=== PATIENT | female | born 1980 | race Hispanic/Latino ===

== ENCOUNTER 2016-06-26 00:29 | Emergency (ER) | payer OTHER ==
[2016-06-26 01:25] LABS: BASO # 0.1 K/mm3 (0.0-0.2); BASO % 0.9 % (0.0-1.0); EOS # 0.1 K/mm3 (0.0-0.50); EOS % 1.5 % (0.0-3.0); LARGE UNSTAINED CELL # 0.2 K/mm3 (0.0-0.4); LARGE UNSTAINED CELL % 2.7 % (0.0-4.0); LYMPH # 2.6 K/mm3 (1.5-4.5); LYMPH % 33.4 % (24.0-44.0); MEAN CORPUSCULAR HEMOGLOBIN 29.1 pg (27.0-33.0); MEAN CORPUSCULAR HGB CONC 32.7 g/dl (32.0-36.5); MEAN CORPUSCULAR VOLUME 88.9 fl (80.0-96.0); MONO # 0.4 K/mm3 (0.0-0.8); MONO % 5.2 % (0.0-5.0); NEUTROPHILS # 4.5 K/mm3 (1.8-7.7); NEUTROPHILS % 56.3 % (36.0-66.0); PLATELET COUNT, AUTOMATED 249 k/mm3 (150-450); RED CELL DISTRIBUTION WIDTH 12.6 % (11.5-14.5); WHITE BLOOD COUNT 7.9 K/mm3 (4.0-10.0)
[2016-06-26 01:46] LABS: CONTROL LINE HCG INT CTR LINE PRESENT
[2016-06-26 01:54] LABS: ALBUMIN 3.6 GM/DL (3.2-5.2); ALBUMIN/GLOBULIN RATIO 0.82 (1.00-1.93); ALKALINE PHOSPHATASE 63 U/L (45-117); ALT/SGPT 39 U/L (12-78); AMYLASE 54 U/L (25-115); ANION GAP 7 MEQ/L (8-16); AST/SGOT 23 U/L (15-37); BILIRUBIN,DIRECT < 0.1 MG/DL (0.0-0.2); BILIRUBIN,TOTAL 0.3 MG/DL (0.2-1.0); BLOOD UREA NITROGEN 12 MG/DL (7-18); CALCIUM LEVEL 8.4 MG/DL (8.5-10.1); CARBON DIOXIDE LEVEL 27 MEQ/L (21-32); CHLORIDE LEVEL 105 MEQ/L (98-107); CREATININE FOR GFR 0.71 MG/DL (0.55-1.02); GLOMERULAR FILTRATION RATE > 60.0 (>60); GLUCOSE, FASTING 89 MG/DL (70-105); POTASSIUM SERUM 3.9 MEQ/L (3.5-5.1); SODIUM LEVEL 139 MEQ/L (136-145)
[2016-06-26] MEDS ORDERED: ISOVUE-370 76% 100ML VIAL (Q9967) As Ordered ONE (02:18)
--- NOTE | 2016-06-26 03:00 | REPUSA ---
CLINICAL HISTORY: Abdominal pain. TECHNIQUE: Multiple axial, sagittal and coronal CT images were obtained through the abdomen and pelvi s after administration of oral and intravenous contrast material. Images were obtained before and aft er IV contrast administration. COMMENTS: The liver is of uniform attenuation without mass or defect. There is no intra or extrahepatic biliary ductal dilatation. The spleen is normal. The gallbladder is within normal limits. The pancreas is of normal contour and attenuation characteristics. There is no evidence of adrenal mass. Both kidneys demonstrate prompt and equal nephrograms. The kidneys are normal in size, shape and conf iguration. There is no evidence of renal or ureteral mass. No renal or ureteral calculi are identifie d. There is no hydroureter or hydronephrosis. No evidence for appendicitis. There is no bowel wall thickening. No evidence for small or large mary l obstruction. There is no evidence of abdominal ascites or lymphadenopathy. Gastric bypass surgery. There is no evidence of intrinsic or extrinsic bladder mass. There is no pelvic ascites or lymphadeno scarlet. Fluid-filled bowels. Moderate large bowel fecal stasis. Mild diffuse thickening of the bladder . Images of the lung bases show no evidence of pleural or parenchymal mass. There are no pleural effusi ons. The bony structures are free of lytic or blastic lesions. IMPRESSION: Fecal stasis in the large bowels. Fluid-filled bowels. Ileus versus developing enteritis. Mildly thickened bladder. Thank you for your kind referral of this patient.
[2016-06-26] MEDS ORDERED: LACTULOSE 20 GM/30 ML SYRUP UD As Ordered ONE (03:13)
--- NOTE | 2016-06-26 03:22 | EDDOCDS ---
Physician Documentation [facility] Name: Shikha Bansal Age: 36 yrs Sex: Female : 1980 Arrival Date: 06/26/2016 Time: 00:29 Bed 10 Private MD: Disposition: 06/26/16 03:08 Discharged to Home/Self Care. Impression: Other fecal abnormalities - stasis. - Condition is Stable. - Medication Reconciliation, Local Pharmacy Hours form. - Follow up: Private Physician; When: Call to arrange an appointment; Reason: Recheck today's complaints. - Problem is new. - Symptoms have improved. Historical: - Allergies: bee stings; - Home Meds: 1. Cymbalta 60 mg Oral cpDR 1 cap once daily for Anxiety - PMHx: Anxiety; Migraine Headaches; Mononucleosus; - PSHx: none; - Social history: Smoking status: Patient states was never smoker of tobacco. No barriers to communication noted, The patient speaks fluent Maltese, Speaks appropriately for age. - Family history: Not pertinent. - : The pt / caregiver states he / she is not on anticoagulants. Home medication list is obtained from the patient. - Exposure Risk Screening:: None identified. 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 3 in. (160.02 cm) (R); Pain 7/10; 03:19 BP 122 / 66; Pulse 74; Resp 18; Temp 98.3(O); Pulse Ox 98% on R/A; Pain 3/10; tm5 00:30 Body Mass Index 29.23 (74.84 kg, 160.02 cm) [facility] MDM: 01:03 IV Saline Lock ordered. cs11 01:03 NS 0.9% 1000 ml IV at bolus once ordered. cs11 01:04 CBC with Diff Ordered. EDMS 01:04 MED Profile Ordered. EDMS 01:04 Liver Profile Ordered. EDMS 01:04 Amylase Ordered. EDMS 01:04 Lipase Ordered. EDMS 01:04 Urinalysis Ordered. EDMS 01:04 HCG,Serum Qualitative Ordered. EDMS 01:04 Urine Culture Ordered. EDMS 01:42 Financial registration complete. hs2 01:47 [facility] Payment Agreement was scanned into [employer] and attached to record. hs2 02:01 CBC with Diff Reviewed. cs11 02:01 MED Profile Reviewed. cs11 02:01 Liver Profile Reviewed. cs11 02:01 Amylase Reviewed. cs11 02:01 Lipase Reviewed. cs11 02:01 Urinalysis Reviewed. cs11 02:01 HCG,Serum Qualitative Reviewed. cs11 02:02 CT ABD & PELVIS: IV Contrast Only Ordered. EDMS 03:07 Lactulose Liquid 60 ml PO once ordered. cs11 Administered Medications: 01:21 Drug: NS 0.9% 1000 ml [sodium chloride 0.9 % intravenous solution] Route: IV; Rate: tm5 bolus; Site: left antecubital; 02:30 Follow up: IV Status: Completed infusion; IV Intake: 1000ml tm5 03:18 Drug: Lactulose 60 ml [lactulose 20 gram/30 mL oral solution (60 mL)] Route: PO; tm5 03:19 Follow up: Response: Pt left department before re-evaluation is appropriate tm5 Signatures: Dispatcher [employer] EDMS Kraig Lyon DO DO cs11 Russ FloodRN RN Brenda Dee, Reg Reg hs2 Jenny Rubalcava,ROSAMARIA RN tm5 The chart was reviewed and I authenticate all verbal orders and agree with the evaluation and treatment provided.Attachments: 01:47 [facility] Payment Agreement hs2 MTDD
--- NOTE | 2016-06-26 03:22 | EDDOCDS ---
Nurse's Notes [facility] Name: Shikha Bansal Age: 36 yrs Sex: Female : 1980 Arrival Date: 06/26/2016 Time: 00:29 Bed 10 Private MD: Diagnosis: Other fecal abnormalities-stasis Presentation: 06/26 00:32 Presenting complaint: Patient states: patient REPORTS HAVING ABDOMINAL PAIN. Patient jmb reports symptoms cause her to be light headed. Patient reports symptoms present since yesterday. Patient reports no call to primary care provider. Risk factors: the patient reports no vaginal bleeding. Adult Sepsis Screening: Accepted Exclusions- The patient does not have new or worsening altered mentation. Patient's respiratory rate is less than 22. Systolic blood pressure is greater than 100. Patient has a qSOFA score of 0- Negative Sepsis Screen. Suicide/Homicide risk assessment- the patient denies having any suicidal and/or homicidal ideations and does not present with any other emotional, behavioral or mental health complaints. Status: Patient is not a rn support services or dependent. Transition of care: patient was not received from another setting of care. 00:32 Acuity: KIMBERLY Level 3 [facility] 00:32 Method Of Arrival: Walkin/Carried/Asstd [facility] Triage Assessment: 00:34 General: Appears in no apparent distress, Behavior is appropriate for age, cooperative. [facility] Pain: Location: abdomen Pain currently is 7 out of 10 on a pain scale. HIV screening NA for this visit Offered previously. Neurological: Level of Consciousness is awake, alert, obeys commands, Oriented to person, place, time, Speech is normal, Facial symmetry appears normal, Facial symmetry: tongue is midline. Respiratory: Airway is patent Respiratory effort is even, unlabored, Respiratory pattern is regular, symmetrical. GI: Abdomen is non- distended. Derm: Skin is pink, warm & dry. Musculoskeletal: Range of motion intact in all extremities. 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 Cymbalta 60 mg Oral cpDR 1 cap once daily for Anxiety - PMHx: Anxiety; Migraine Headaches; Mononucleosus; - PSHx: none; - Social history: Smoking status: Patient states was never smoker of tobacco. No barriers to communication noted, The patient speaks fluent Romanian, Speaks appropriately for age. - Family history: Not pertinent. - : The pt / caregiver states he / she is not on anticoagulants. Home medication list is obtained from the patient. - Exposure Risk Screening:: None identified. Screenin:21 Screening information is obtained from the patient. Fall risk: No risks identified. tm5 Assistance ADL's: requires no assistance with activities of daily living. Abuse/DV Screen: The patient / caregiver reports he/she is: not in a situation that causes fear, pain or injury. Nutritional screening: No deficits noted. Advance Directives: There is no active DNR order. home support is adequate. Assessment: 01:21 General: Appears in no apparent distress, Behavior is appropriate for age, cooperative. tm5 Pain: Location: right upper quadrant and right lower quadrant Pain currently is 6 out of 10 on a pain scale. Quality of pain is described as crampy, sharp. Neurological: Level of Consciousness is awake, alert, Oriented to person, place, time. Respiratory: Airway is patent Respiratory effort is even, unlabored, Respiratory pattern is regular, symmetrical, Breath sounds are clear bilaterally. GI: Abdomen is non- distended Bowel sounds present X 4 quads. Abd is soft X 4 quads Abd is tender to palpation in right upper quadrant and right lower quadrant Reports nausea. : No deficits noted. Derm: Skin is pink, warm & dry. 03:19 Reassessment: Patient appears in no apparent distress at this time. Patient states tm5 feeling better. Patient states symptoms have improved. Vital Signs: 00:30 BP 115 / 63; Pulse 73; Resp 20; Temp 96.4(O); Pulse Ox 100% on R/A; Weight 74.84 kg [facility] (R); Height 5 ft. 3 in. (160.02 cm) (R); Pain 7/10; 03:19 BP 122 / 66; Pulse 74; Resp 18; Temp 98.3(O); Pulse Ox 98% on R/A; Pain 3/10; tm5 00:30 Body Mass Index 29.23 (74.84 kg, 160.02 cm) [facility] Vitals: 00:30 Log In Time: June 26, 2016 at 00:30. [facility] ED Course: 00:30 Patient visited by Federico Richard RegKushal pm4 00:30 Patient moved to Waiting pm4 00:33 Triage Initiated jmb 00:38 Patient moved to 10 jmb 00:55 Kraig Lyon DO is Attending Physician. cs11 00:55 Patient visited by Kraig Lyon DO. cs11 01:21 The patient / caregiver is instructed regarding the plan of care and ED course. tm5 01:21 HCG,Serum Qualitative Sent. tm5 01:21 Urine Culture Sent. tm5 01:21 Urinalysis Sent. tm5 01:21 Lipase Sent. tm5 01:21 Amylase Sent. tm5 01:21 Liver Profile Sent. tm5 01:21 MED Profile Sent. tm5 01:21 CBC with Diff Sent. tm5 01:21 Inserted saline lock: 20 gauge in left antecubital area and blood collected. The tm5 patient tolerated the procedure well. Labs drawn. (by ED staff). Sent per order to lab. Urine collected. Clean catch specimen. 01:42 Patient visited by Jenny Rubalcava RN. tm5 01:47 [facility] Payment Agreement was scanned into [email or web address] and attached to record. hs2 02:17 Patient visited by Jenny Rubalcava RN. tm5 02:23 Patient visited by Jenny Rubalcava RN. tm5 02:[address] tm5 03:06 CT ABD & PELVIS: IV Contrast Only Returned. EDMS 03:08 Patient visited by Jenny Rubalcava RN. tm5 03:19 Discontinued lock intact, bleeding controlled, pressure dressing applied, No tm5 redness/swelling at site. No procedures done that require assistance. Administered Medications: 01:21 Drug: NS 0.9% 1000 ml [sodium chloride 0.9 % intravenous solution] Route: IV; Rate: tm5 bolus; Site: left antecubital; 02:30 Follow up: IV Status: Completed infusion; IV Intake: 1000ml tm5 03:18 Drug: Lactulose 60 ml [lactulose 20 gram/30 mL oral solution (60 mL)] Route: PO; tm5 03:19 Follow up: Response: Pt left department before re-evaluation is appropriate tm5 Intake: 02:30 IV: 1000.00ml; Total: 1000.00ml. tm5 Order Results: Lab Order: CBC with Diff; SPEC'M 06/26/16 01:19 Test: WHITE BLOOD COUNT; Value: 7.9; Range: 4.0-10.0; Units: K/mm3; Status: F Test: RED BLOOD COUNT; Value: 4.12; Range: 4.00-5.40; Units: M/mm3; Status: F Test: HEMOGLOBIN; Value: 12.0; Range: 12.0-16.0; Units: g/dl; Status: F Test: HEMATOCRIT; Value: 36.6; Range: 36.0-47.0; Units: %; Status: F Test: MEAN CORPUSCULAR VOLUME; Value: 88.9; Range: 80.0-96.0; Units: fl; Status: F Test: MEAN CORPUSCULAR HEMOGLOBIN; Value: 29.1; Range: 27.0-33.0; Units: pg; Status: F Test: MEAN CORPUSCULAR HGB CONC; Value: 32.7; Range: 32.0-36.5; Units: g/dl; Status: F Test: RED CELL DISTRIBUTION WIDTH; Value: 12.6; Range: 11.5-14.5; Units: %; Status: F Test: PLATELET COUNT, AUTOMATED; Value: 249; Range: 150-450; Units: k/mm3; Status: F Test: NEUTROPHILS %; Value: 56.3; Range: 36.0-66.0; Units: %; Status: F Test: LYMPH %; Value: 33.4; Range: 24.0-44.0; Units: %; Status: F Test: MONO %; Value: 5.2; Range: 0.0-5.0; Abnormal: Above high normal; Units: %; Status: F Test: EOS %; Value: 1.5; Range: 0.0-3.0; Units: %; Status: F Test: BASO %; Value: 0.9; Range: 0.0-1.0; Units: %; Status: F Test: LARGE UNSTAINED CELL %; Value: 2.7; Range: 0.0-4.0; Units: %; Status: F Test: NEUTROPHILS #; Value: 4.5; Range: 1.8-7.7; Units: K/mm3; Status: F Test: LYMPH #; Value: 2.6; Range: 1.5-4.5; Units: K/mm3; Status: F Test: MONO #; Value: 0.4; Range: 0.0-0.8; Units: K/mm3; Status: F Test: EOS #; Value: 0.1; Range: 0.0-0.50; Units: K/mm3; Status: F Test: BASO #; Value: 0.1; Range: 0.0-0.2; Units: K/mm3; Status: F Test: LARGE UNSTAINED CELL #; Value: 0.2; Range: 0.0-0.4; Units: K/mm3; Status: F Lab Order: MED Profile; SPEC'M 06/26/16 01:19 Test: GLUCOSE, FASTING; Value: 89; Range: 70-105; Units: MG/DL; Status: F Test: BLOOD UREA NITROGEN; Value: 12; Range: 7-18; Units: MG/DL; Status: F Test: CREATININE FOR GFR; Value: 0.71; Range: 0.55-1.02; Units: MG/DL; Status: F Test: SODIUM LEVEL; Range: 136-145; Units: MEQ/L; Status: I Test: POTASSIUM SERUM; Range: 3.5-5.1; Units: MEQ/L; Status: I Test: CHLORIDE LEVEL; Range: 98-107; Units: MEQ/L; Status: I Test: CARBON DIOXIDE LEVEL; Range: 21-32; Units: MEQ/L; Status: I Test: ANION GAP; Range: 8-16; Units: MEQ/L; Status: I Test: CALCIUM LEVEL; Range: 8.5-10.1; Units: MG/DL; Status: I Test: GLOMERULAR FILTRATION RATE; Value: > 60.0; Range: >60; Status: F Test: SODIUM LEVEL; Value: 139; Range: 136-145; Units: MEQ/L; Status: F Test: POTASSIUM SERUM; Value: 3.9; Range: 3.5-5.1; Units: MEQ/L; Status: F Test: CHLORIDE LEVEL; Value: 105; Range: 98-107; Units: MEQ/L; Status: F Test: CARBON DIOXIDE LEVEL; Value: 27; Range: 21-32; Units: MEQ/L; Status: F Test: ANION GAP; Value: 7; Range: 8-16; Abnormal: Below low normal; Units: MEQ/L; Status: F Test: CALCIUM LEVEL; Value: 8.4; Range: 8.5-10.1; Abnormal: Below low normal; Units: MG/DL; Status: F Test Note: ; Units are mL/min/1.73 m2 Chronic Kidney Disease Staging per NKF: Stage I & II GFR >=60 Normal to Mildly Decreased Stage III GFR 30-59 Moderately Decreased Stage IV GFR 15-29 Severely Decreased Stage V GFR <15 Very Little GFR Left ESRD GFR <15 on RING STAMPER Lab Order: Liver Profile; 06/26/16:19 Test: AST/SGOT; Value: 23; Range: 15-37; Units: U/L; Status: F Test: ALT/SGPT; Value: 39; Range: 12-78; Units: U/L; Status: F Test: ALKALINE PHOSPHATASE; Value: 63; Range: 45-117; Units: U/L; Status: F Test: BILIRUBIN,TOTAL; Value: 0.3; Range: 0.2-1.0; Units: MG/DL; Status: F Test: BILIRUBIN,DIRECT; Value: < 0.1; Range: 0.0-0.2; Units: MG/DL; Status: F Test: TOTAL PROTEIN; Value: 8.0; Range: 6.4-8.2; Units: GM/DL; Status: F Test: ALBUMIN; Value: 3.6; Range: 3.2-5.2; Units: GM/DL; Status: F Test: ALBUMIN/GLOBULIN RATIO; Value: 0.82; Range: 1.00-1.93; Abnormal: Below low normal; Status: F Lab Order: Amylase; 06/26/16:19 Test: AMYLASE; Value: 54; Range: 25-115; Units: U/L; Status: F Lab Order: Lipase; 06/26/16:19 Test: LIPASE; Value: 236; Range: 73-393; Units: U/L; Status: F Lab Order: Urinalysis; 06/26/16 01:19 Test: APPEARANCE, URINE; Value: CLEAR; Range: CLEAR; Status: F Test: COLOR, URINE; Value: YELLOW; Range: YELLOW; Status: F Test: PH,URINE; Value: 6.0; Range: 5.0-9.0; Units: UNITS; Status: F Test: SPECIFIC GRAVITY URINE AUTO; Value: 1.008; Range: 1.002-1.035; Status: F Test: PROTEIN, URINE AUTO; Value: NEGATIVE; Range: NEGATIVE; Units: mg/dL; Status: F Test: GLUCOSE, URINE (UA) AUTO; Value: NEGATIVE; Range: NEGATIVE; Units: mg/dL; Status: F Test: KETONE, URINE AUTO; Value: NEGATIVE; Range: NEGATIVE; Units: mg/dL; Status: F Test: UROBILINOGEN, URINE AUTO; Value: 0.2; Range: 0.0-2.0; Units: mg/dL; Status: F Test: BILIRUBIN, URINE AUTO; Value: NEGATIVE; Range: NEGATIVE; Status: F Test: NITRITE, URINE AUTO; Value: NEGATIVE; Range: NEGATIVE; Status: F Test: LEUKOCYTE ESTERASE, URINE AUTO; Value: NEGATIVE; Range: NEGATIVE; Status: F Test: BLOOD, URINE BLOOD; Value: NEGATIVE; Range: NEGATIVE; Status: F Test: WBC, URINE AUTO; Value: 1; Range: 0-3; Units: /HPF; Status: F Test: RBC, URINE AUTO; Value: 1; Range: 0-3; Units: /HPF; Status: F Test: BACTERIA, URINE AUTO; Value: NEGATIVE; Range: NEGATIVE; Status: F Test: SQUAMOUS EPITHELIAL CELL UR AU; Value: 1; Range: 0-6; Units: /HPF; Status: F Test: HYALINE CAST, URINE AUTO; Value: 0; Range: 0-1; Units: /LPF; Status: F Lab Order: HCG,Serum Qualitative; SPEC'M 06/26/16 01:19 Test: HCG, SERUM QUALITATIVE; Value: NEGATIVE; Range: NEGATIVE; Status: F Radiology Order: CT ABD & PELVIS: IV Contrast Only Test: CT ABD & PELVIS: IV Contrast Only REASON FOR EXAMINATION: Abdomen Pain; ; CLINICAL HISTORY: Abdominal pain.; TECHNIQUE: Multiple axial, sagittal and coronal CT images were obtained through the abdomen and pelvi; s after administration of oral and intravenous contrast material. Images were obtained before and aft; er IV contrast administration.; COMMENTS:; The liver is of uniform attenuation without mass or defect. There is no intra or extrahepatic biliary; ductal dilatation. The spleen is normal. The gallbladder is within normal limits. The pancreas is of; normal contour and attenuation characteristics. There is no evidence of adrenal mass.; Both kidneys demonstrate prompt and equal nephrograms. The kidneys are normal in size, shape and conf; iguration. There is no evidence of renal or ureteral mass. No renal or ureteral calculi are identifie; d. There is no hydroureter or hydronephrosis.; No evidence for appendicitis. There is no bowel wall thickening. No evidence for small or large mary; l obstruction. There is no evidence of abdominal ascites or lymphadenopathy. Gastric bypass surgery.; There is no evidence of intrinsic or extrinsic bladder mass. There is no pelvic ascites or lymphadeno; scarlet. Fluid-filled bowels. Moderate large bowel fecal stasis. Mild diffuse thickening of the bladder; .; Images of the lung bases show no evidence of pleural or parenchymal mass. There are no pleural effusi; ons.; The bony structures are free of lytic or blastic lesions.; IMPRESSION:; Fecal stasis in the large bowels.; Fluid-filled bowels. Ileus versus developing enteritis.; Mildly thickened bladder.; Thank you for your kind referral of this patient.; ; Outcome: 03:08 Discharge ordered by Provider. cs11 03:19 Discharge Assessment: Patient awake, alert and oriented x 3. No cognitive and/or tm5 functional deficits noted. Patient verbalized understanding of disposition instructions. patient administered narcotics - no. The following High Risk Discharge criteria are identified: None. Discharged to home ambulatory. Condition: good Condition: stable Condition: improved. Discharge instructions given to patient, Instructed on discharge instructions, follow up and referral plans. medication usage, Demonstrated understanding of instructions, Pt was receptive of discharge instructions/ teaching. CT Study completed. Property :Personal belongings accompany Pt. 03:22 Patient left the ED. tm5 Signatures: Dispatcher [employer] EDMS Kraig Lyon DO DO cs11 Russ Flood RN RN Brenda Dee, Reg Reg hs2 Jenny Rubalcava RN RN tm5 Federico Richard, Reg Reg pm4 MTDD
--- NOTE | 2016-06-28 04:23 | EDDOCDS ---
Physician Documentation [facility] Name: Shikha Bansal Age: 36 yrs Sex: Female : 1980 Arrival Date: 06/26/2016 Time: 00:29 Bed 10 Private MD: Disposition: 06/26/16 03:08 Discharged to Home/Self Care. Impression: Other fecal abnormalities - stasis. - Condition is Stable. - Medication Reconciliation, Local Pharmacy Hours form. - Follow up: Private Physician; When: Call to arrange an appointment; Reason: Recheck today's complaints. - Problem is new. - Symptoms have improved. Historical: - Allergies: bee stings; - Home Meds: 1. Cymbalta 60 mg Oral cpDR 1 cap once daily for Anxiety - PMHx: Anxiety; Migraine Headaches; Mononucleosus; - PSHx: none; - Social history: Smoking status: Patient states was never smoker of tobacco. No barriers to communication noted, The patient speaks fluent Swedish, Speaks appropriately for age. - Family history: Not pertinent. - : The pt / caregiver states he / she is not on anticoagulants. Home medication list is obtained from the patient. - Exposure Risk Screening:: None identified. 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 3 in. (160.02 cm) (R); Pain 7/10; 03:19 BP 122 / 66; Pulse 74; Resp 18; Temp 98.3(O); Pulse Ox 98% on R/A; Pain 3/10; tm5 00:30 Body Mass Index 29.23 (74.84 kg, 160.02 cm) [facility] MDM: 01:03 IV Saline Lock ordered. cs11 01:03 NS 0.9% 1000 ml IV at bolus once ordered. cs11 01:04 CBC with Diff Ordered. EDMS 01:04 MED Profile Ordered. EDMS 01:04 Liver Profile Ordered. EDMS 01:04 Amylase Ordered. EDMS 01:04 Lipase Ordered. EDMS 01:04 Urinalysis Ordered. EDMS 01:04 HCG,Serum Qualitative Ordered. EDMS 01:04 Urine Culture Ordered. EDMS 01:42 Financial registration complete. hs2 01:47 [facility] Payment Agreement was scanned into [employer] and attached to record. hs2 02:01 CBC with Diff Reviewed. cs11 02:01 MED Profile Reviewed. cs11 02:01 Liver Profile Reviewed. cs11 02:01 Amylase Reviewed. cs11 02:01 Lipase Reviewed. cs11 02:01 Urinalysis Reviewed. cs11 02:01 HCG,Serum Qualitative Reviewed. cs11 02:02 CT ABD & PELVIS: IV Contrast Only Ordered. EDMS 03:07 Lactulose Liquid 60 ml PO once ordered. cs11 14:02 T-Sheet-- Draft Copy was scanned into [employer] and attached to record. gb Administered Medications: 01:21 Drug: NS 0.9% 1000 ml [sodium chloride 0.9 % intravenous solution] Route: IV; Rate: tm5 bolus; Site: left antecubital; 02:30 Follow up: IV Status: Completed infusion; IV Intake: 1000ml tm5 03:18 Drug: Lactulose 60 ml [lactulose 20 gram/30 mL oral solution (60 mL)] Route: PO; tm5 03:19 Follow up: Response: Pt left department before re-evaluation is appropriate tm5 Signatures: Dispatcher [employer] EDMS Emely Wall, Reg Reg gb Kraig Lyon, DO DO cs11 Russ Flood,RN RN jmb Brenda Shrestha, Reg Reg hs2 Jenny Rubalcava RN RN tm5 The chart was reviewed and I authenticate all verbal orders and agree with the evaluation and treatment provided.Attachments: 01:47 [facility] Payment Agreement hs2 14:02 T-Sheet-- Draft Copy gb Chart Complete MTDD
--- NOTE | 2016-06-28 04:23 | EDDOCDS ---
Physician Documentation [facility] Name: Shikha Bansal Age: 36 yrs Sex: Female : 1980 Arrival Date: 06/26/2016 Time: 00:29 Bed 10 Private MD: Disposition: 06/26/16 03:08 Discharged to Home/Self Care. Impression: Other fecal abnormalities - stasis. - Condition is Stable. - Medication Reconciliation, Local Pharmacy Hours form. - Follow up: Private Physician; When: Call to arrange an appointment; Reason: Recheck today's complaints. - Problem is new. - Symptoms have improved. Historical: - Allergies: bee stings; - Home Meds: 1. Cymbalta 60 mg Oral cpDR 1 cap once daily for Anxiety - PMHx: Anxiety; Migraine Headaches; Mononucleosus; - PSHx: none; - Social history: Smoking status: Patient states was never smoker of tobacco. No barriers to communication noted, The patient speaks fluent Telugu, Speaks appropriately for age. - Family history: Not pertinent. - : The pt / caregiver states he / she is not on anticoagulants. Home medication list is obtained from the patient. - Exposure Risk Screening:: None identified. 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 3 in. (160.02 cm) (R); Pain 7/10; 03:19 BP 122 / 66; Pulse 74; Resp 18; Temp 98.3(O); Pulse Ox 98% on R/A; Pain 3/10; tm5 00:30 Body Mass Index 29.23 (74.84 kg, 160.02 cm) [facility] MDM: 01:03 IV Saline Lock ordered. cs11 01:03 NS 0.9% 1000 ml IV at bolus once ordered. cs11 01:04 CBC with Diff Ordered. EDMS 01:04 MED Profile Ordered. EDMS 01:04 Liver Profile Ordered. EDMS 01:04 Amylase Ordered. EDMS 01:04 Lipase Ordered. EDMS 01:04 Urinalysis Ordered. EDMS 01:04 HCG,Serum Qualitative Ordered. EDMS 01:04 Urine Culture Ordered. EDMS 01:42 Financial registration complete. hs2 01:47 [facility] Payment Agreement was scanned into [employer] and attached to record. hs2 02:01 CBC with Diff Reviewed. cs11 02:01 MED Profile Reviewed. cs11 02:01 Liver Profile Reviewed. cs11 02:01 Amylase Reviewed. cs11 02:01 Lipase Reviewed. cs11 02:01 Urinalysis Reviewed. cs11 02:01 HCG,Serum Qualitative Reviewed. cs11 02:02 CT ABD & PELVIS: IV Contrast Only Ordered. EDMS 03:07 Lactulose Liquid 60 ml PO once ordered. cs11 14:02 T-Sheet-- Draft Copy was scanned into [employer] and attached to record. gb Administered Medications: 01:21 Drug: NS 0.9% 1000 ml [sodium chloride 0.9 % intravenous solution] Route: IV; Rate: tm5 bolus; Site: left antecubital; 02:30 Follow up: IV Status: Completed infusion; IV Intake: 1000ml tm5 03:18 Drug: Lactulose 60 ml [lactulose 20 gram/30 mL oral solution (60 mL)] Route: PO; tm5 03:19 Follow up: Response: Pt left department before re-evaluation is appropriate tm5 Signatures: Dispatcher [employer] EDMS Emely Wall, Reg Reg gb Kraig Lyon, DO DO cs11 Russ Flood,RN RN jmb Brenda Shrestha, Reg Reg hs2 Jenny Rubalcava RN RN tm5 The chart was reviewed and I authenticate all verbal orders and agree with the evaluation and treatment provided.Attachments: 01:47 [facility] Payment Agreement hs2 14:02 T-Sheet-- Draft Copy gb Chart Complete MTDD
--- NOTE | 2016-06-28 04:23 | EDDOCDS ---
Nurse's Notes [facility] Name: Shikha Bansal Age: 36 yrs Sex: Female : 1980 Arrival Date: 06/26/2016 Time: 00:29 Bed 10 Private MD: Diagnosis: Other fecal abnormalities-stasis Presentation: 06/26 00:32 Presenting complaint: Patient states: patient REPORTS HAVING ABDOMINAL PAIN. Patient jmb reports symptoms cause her to be light headed. Patient reports symptoms present since yesterday. Patient reports no call to primary care provider. Risk factors: the patient reports no vaginal bleeding. Adult Sepsis Screening: Accepted Exclusions- The patient does not have new or worsening altered mentation. Patient's respiratory rate is less than 22. Systolic blood pressure is greater than 100. Patient has a qSOFA score of 0- Negative Sepsis Screen. Suicide/Homicide risk assessment- the patient denies having any suicidal and/or homicidal ideations and does not present with any other emotional, behavioral or mental health complaints. Status: Patient is not a general service officer or dependent. Transition of care: patient was not received from another setting of care. 00:32 Acuity: KIMBERLY Level 3 [facility] 00:32 Method Of Arrival: Walkin/Carried/Asstd [facility] Triage Assessment: 00:34 General: Appears in no apparent distress, Behavior is appropriate for age, cooperative. [facility] Pain: Location: abdomen Pain currently is 7 out of 10 on a pain scale. HIV screening NA for this visit Offered previously. Neurological: Level of Consciousness is awake, alert, obeys commands, Oriented to person, place, time, Speech is normal, Facial symmetry appears normal, Facial symmetry: tongue is midline. Respiratory: Airway is patent Respiratory effort is even, unlabored, Respiratory pattern is regular, symmetrical. GI: Abdomen is non- distended. Derm: Skin is pink, warm & dry. Musculoskeletal: Range of motion intact in all extremities. 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 Cymbalta 60 mg Oral cpDR 1 cap once daily for Anxiety - PMHx: Anxiety; Migraine Headaches; Mononucleosus; - PSHx: none; - Social history: Smoking status: Patient states was never smoker of tobacco. No barriers to communication noted, The patient speaks fluent Occitan, Speaks appropriately for age. - Family history: Not pertinent. - : The pt / caregiver states he / she is not on anticoagulants. Home medication list is obtained from the patient. - Exposure Risk Screening:: None identified. Screenin:21 Screening information is obtained from the patient. Fall risk: No risks identified. tm5 Assistance ADL's: requires no assistance with activities of daily living. Abuse/DV Screen: The patient / caregiver reports he/she is: not in a situation that causes fear, pain or injury. Nutritional screening: No deficits noted. Advance Directives: There is no active DNR order. home support is adequate. Assessment: 01:21 General: Appears in no apparent distress, Behavior is appropriate for age, cooperative. tm5 Pain: Location: right upper quadrant and right lower quadrant Pain currently is 6 out of 10 on a pain scale. Quality of pain is described as crampy, sharp. Neurological: Level of Consciousness is awake, alert, Oriented to person, place, time. Respiratory: Airway is patent Respiratory effort is even, unlabored, Respiratory pattern is regular, symmetrical, Breath sounds are clear bilaterally. GI: Abdomen is non- distended Bowel sounds present X 4 quads. Abd is soft X 4 quads Abd is tender to palpation in right upper quadrant and right lower quadrant Reports nausea. : No deficits noted. Derm: Skin is pink, warm & dry. 03:19 Reassessment: Patient appears in no apparent distress at this time. Patient states tm5 feeling better. Patient states symptoms have improved. Vital Signs: 00:30 BP 115 / 63; Pulse 73; Resp 20; Temp 96.4(O); Pulse Ox 100% on R/A; Weight 74.84 kg [facility] (R); Height 5 ft. 3 in. (160.02 cm) (R); Pain 7/10; 03:19 BP 122 / 66; Pulse 74; Resp 18; Temp 98.3(O); Pulse Ox 98% on R/A; Pain 3/10; tm5 00:30 Body Mass Index 29.23 (74.84 kg, 160.02 cm) [facility] Vitals: 00:30 Log In Time: June 26, 2016 at 00:30. [facility] ED Course: 00:30 Patient visited by Federico Richard RegKushal pm4 00:30 Patient moved to Waiting pm4 00:33 Triage Initiated jmb 00:38 Patient moved to 10 jmb 00:55 Kraig Lyon DO is Attending Physician. cs11 00:55 Patient visited by Kraig Lyon DO. cs11 01:21 The patient / caregiver is instructed regarding the plan of care and ED course. tm5 01:21 HCG,Serum Qualitative Sent. tm5 01:21 Urine Culture Sent. tm5 01:21 Urinalysis Sent. tm5 01:21 Lipase Sent. tm5 01:21 Amylase Sent. tm5 01:21 Liver Profile Sent. tm5 01:21 MED Profile Sent. tm5 01:21 CBC with Diff Sent. tm5 01:21 Inserted saline lock: 20 gauge in left antecubital area and blood collected. The tm5 patient tolerated the procedure well. Labs drawn. (by ED staff). Sent per order to lab. Urine collected. Clean catch specimen. 01:42 Patient visited by Jenny Rubalcava RN. tm5 01:47 [facility] [place] Agreement was scanned into [employer] and attached to record. hs2 02:17 Patient visited by Jenny Rubalcava RN. tm5 02:23 Patient visited by Jenny Rubalcava RN. tm5 02:[address] tm5 03:06 CT ABD & PELVIS: IV Contrast Only Returned. EDMS 03:08 Patient visited by Jenny Rubalcava RN. tm5 03:19 Discontinued lock intact, bleeding controlled, pressure dressing applied, No tm5 redness/swelling at site. No procedures done that require assistance. 14:02 T-Sheet-- Draft Copy was scanned into [employer] and attached to record. gb Administered Medications: 01:21 Drug: NS 0.9% 1000 ml [sodium chloride 0.9 % intravenous solution] Route: IV; Rate: tm5 bolus; Site: left antecubital; 02:30 Follow up: IV Status: Completed infusion; IV Intake: 1000ml tm5 03:18 Drug: Lactulose 60 ml [lactulose 20 gram/30 mL oral solution (60 mL)] Route: PO; tm5 03:19 Follow up: Response: Pt left department before re-evaluation is appropriate tm5 Intake: 02:30 IV: 1000.00ml; Total: 1000.00ml. tm5 Order Results: Lab Order: CBC with Diff; SPEC'M 06/26/16 01:19 Test: WHITE BLOOD COUNT; Value: 7.9; Range: 4.0-10.0; Units: K/mm3; Status: F Test: RED BLOOD COUNT; Value: 4.12; Range: 4.00-5.40; Units: M/mm3; Status: F Test: HEMOGLOBIN; Value: 12.0; Range: 12.0-16.0; Units: g/dl; Status: F Test: HEMATOCRIT; Value: 36.6; Range: 36.0-47.0; Units: %; Status: F Test: MEAN CORPUSCULAR VOLUME; Value: 88.9; Range: 80.0-96.0; Units: fl; Status: F Test: MEAN CORPUSCULAR HEMOGLOBIN; Value: 29.1; Range: 27.0-33.0; Units: pg; Status: F Test: MEAN CORPUSCULAR HGB CONC; Value: 32.7; Range: 32.0-36.5; Units: g/dl; Status: F Test: RED CELL DISTRIBUTION WIDTH; Value: 12.6; Range: 11.5-14.5; Units: %; Status: F Test: PLATELET COUNT, AUTOMATED; Value: 249; Range: 150-450; Units: k/mm3; Status: F Test: NEUTROPHILS %; Value: 56.3; Range: 36.0-66.0; Units: %; Status: F Test: LYMPH %; Value: 33.4; Range: 24.0-44.0; Units: %; Status: F Test: MONO %; Value: 5.2; Range: 0.0-5.0; Abnormal: Above high normal; Units: %; Status: F Test: EOS %; Value: 1.5; Range: 0.0-3.0; Units: %; Status: F Test: BASO %; Value: 0.9; Range: 0.0-1.0; Units: %; Status: F Test: LARGE UNSTAINED CELL %; Value: 2.7; Range: 0.0-4.0; Units: %; Status: F Test: NEUTROPHILS #; Value: 4.5; Range: 1.8-7.7; Units: K/mm3; Status: F Test: LYMPH #; Value: 2.6; Range: 1.5-4.5; Units: K/mm3; Status: F Test: MONO #; Value: 0.4; Range: 0.0-0.8; Units: K/mm3; Status: F Test: EOS #; Value: 0.1; Range: 0.0-0.50; Units: K/mm3; Status: F Test: BASO #; Value: 0.1; Range: 0.0-0.2; Units: K/mm3; Status: F Test: LARGE UNSTAINED CELL #; Value: 0.2; Range: 0.0-0.4; Units: K/mm3; Status: F Lab Order: MED Profile; SPECM 06/26/16 01:19 Test: GLUCOSE, FASTING; Value: 89; Range: 70-105; Units: MG/DL; Status: F Test: BLOOD UREA NITROGEN; Value: 12; Range: 7-18; Units: MG/DL; Status: F Test: CREATININE FOR GFR; Value: 0.71; Range: 0.55-1.02; Units: MG/DL; Status: F Test: SODIUM LEVEL; Range: 136-145; Units: MEQ/L; Status: I Test: POTASSIUM SERUM; Range: 3.5-5.1; Units: MEQ/L; Status: I Test: CHLORIDE LEVEL; Range: 98-107; Units: MEQ/L; Status: I Test: CARBON DIOXIDE LEVEL; Range: 21-32; Units: MEQ/L; Status: I Test: ANION GAP; Range: 8-16; Units: MEQ/L; Status: I Test: CALCIUM LEVEL; Range: 8.5-10.1; Units: MG/DL; Status: I Test: GLOMERULAR FILTRATION RATE; Value: > 60.0; Range: >60; Status: F Test: SODIUM LEVEL; Value: 139; Range: 136-145; Units: MEQ/L; Status: F Test: POTASSIUM SERUM; Value: 3.9; Range: 3.5-5.1; Units: MEQ/L; Status: F Test: CHLORIDE LEVEL; Value: 105; Range: 98-107; Units: MEQ/L; Status: F Test: CARBON DIOXIDE LEVEL; Value: 27; Range: 21-32; Units: MEQ/L; Status: F Test: ANION GAP; Value: 7; Range: 8-16; Abnormal: Below low normal; Units: MEQ/L; Status: F Test: CALCIUM LEVEL; Value: 8.4; Range: 8.5-10.1; Abnormal: Below low normal; Units: MG/DL; Status: F Test Note: ; Units are mL/min/1.73 m2 Chronic Kidney Disease Staging per NKF: Stage I & II GFR >=60 Normal to Mildly Decreased Stage III GFR 30-59 Moderately Decreased Stage IV GFR 15-29 Severely Decreased Stage V GFR <15 Very Little GFR Left ESRD GFR <15 on [employer] Lab Order: Liver Profile; 06/26/16 01:19 Test: AST/SGOT; Value: 23; Range: 15-37; Units: U/L; Status: F Test: ALT/SGPT; Value: 39; Range: 12-78; Units: U/L; Status: F Test: ALKALINE PHOSPHATASE; Value: 63; Range: 45-117; Units: U/L; Status: F Test: BILIRUBIN,TOTAL; Value: 0.3; Range: 0.2-1.0; Units: MG/DL; Status: F Test: BILIRUBIN,DIRECT; Value: < 0.1; Range: 0.0-0.2; Units: MG/DL; Status: F Test: TOTAL PROTEIN; Value: 8.0; Range: 6.4-8.2; Units: GM/DL; Status: F Test: ALBUMIN; Value: 3.6; Range: 3.2-5.2; Units: GM/DL; Status: F Test: ALBUMIN/GLOBULIN RATIO; Value: 0.82; Range: 1.00-1.93; Abnormal: Below low normal; Status: F Lab Order: Amylase; 06/26/16:19 Test: AMYLASE; Value: 54; Range: 25-115; Units: U/L; Status: F Lab Order: Lipase; 06/26/16:19 Test: LIPASE; Value: 236; Range: 73-393; Units: U/L; Status: F Lab Order: Urinalysis; 06/26/16 01:19 Test: APPEARANCE, URINE; Value: CLEAR; Range: CLEAR; Status: F Test: COLOR, URINE; Value: YELLOW; Range: YELLOW; Status: F Test: PH,URINE; Value: 6.0; Range: 5.0-9.0; Units: UNITS; Status: F Test: SPECIFIC GRAVITY URINE AUTO; Value: 1.008; Range: 1.002-1.035; Status: F Test: PROTEIN, URINE AUTO; Value: NEGATIVE; Range: NEGATIVE; Units: mg/dL; Status: F Test: GLUCOSE, URINE (UA) AUTO; Value: NEGATIVE; Range: NEGATIVE; Units: mg/dL; Status: F Test: KETONE, URINE AUTO; Value: NEGATIVE; Range: NEGATIVE; Units: mg/dL; Status: F Test: UROBILINOGEN, URINE AUTO; Value: 0.2; Range: 0.0-2.0; Units: mg/dL; Status: F Test: BILIRUBIN, URINE AUTO; Value: NEGATIVE; Range: NEGATIVE; Status: F Test: NITRITE, URINE AUTO; Value: NEGATIVE; Range: NEGATIVE; Status: F Test: LEUKOCYTE ESTERASE, URINE AUTO; Value: NEGATIVE; Range: NEGATIVE; Status: F Test: BLOOD, URINE BLOOD; Value: NEGATIVE; Range: NEGATIVE; Status: F Test: WBC, URINE AUTO; Value: 1; Range: 0-3; Units: /HPF; Status: F Test: RBC, URINE AUTO; Value: 1; Range: 0-3; Units: /HPF; Status: F Test: BACTERIA, URINE AUTO; Value: NEGATIVE; Range: NEGATIVE; Status: F Test: SQUAMOUS EPITHELIAL CELL UR AU; Value: 1; Range: 0-6; Units: /HPF; Status: F Test: HYALINE CAST, URINE AUTO; Value: 0; Range: 0-1; Units: /LPF; Status: F Lab Order: Urine Culture; SPEC'M 06/26/16 01:19 Test: URINE CULTURE; Value: <EXTERNAL COMMENT eCWMed> FULL REPORT IN LAB NOTES (eCW and [employer]ent).; Status: F Test: URINE CULTURE; Value: URINE CULTURE RESULT SPECIMEN APPEARS CONTAMINATED; Status: F Lab Order: HCG,Serum Qualitative; SPEC'M 06/26/16 01:19 Test: HCG, SERUM QUALITATIVE; Value: NEGATIVE; Range: NEGATIVE; Status: F Radiology Order: CT ABD & PELVIS: IV Contrast Only Test: CT ABD & PELVIS: IV Contrast Only REASON FOR EXAMINATION: Abdomen Pain; ; CLINICAL HISTORY: Abdominal pain.; TECHNIQUE: Multiple axial, sagittal and coronal CT images were obtained through the abdomen and pelvi; s after administration of oral and intravenous contrast material. Images were obtained before and aft; er IV contrast administration.; COMMENTS:; The liver is of uniform attenuation without mass or defect. There is no intra or extrahepatic biliary; ductal dilatation. The spleen is normal. The gallbladder is within normal limits. The pancreas is of; normal contour and attenuation characteristics. There is no evidence of adrenal mass.; Both kidneys demonstrate prompt and equal nephrograms. The kidneys are normal in size, shape and conf; iguration. There is no evidence of renal or ureteral mass. No renal or ureteral calculi are identifie; d. There is no hydroureter or hydronephrosis.; No evidence for appendicitis. There is no bowel wall thickening. No evidence for small or large mary; l obstruction. There is no evidence of abdominal ascites or lymphadenopathy. Gastric bypass surgery.; There is no evidence of intrinsic or extrinsic bladder mass. There is no pelvic ascites or lymphadeno; scarlet. Fluid-filled bowels. Moderate large bowel fecal stasis. Mild diffuse thickening of the bladder; .; Images of the lung bases show no evidence of pleural or parenchymal mass. There are no pleural effusi; ons.; The bony structures are free of lytic or blastic lesions.; IMPRESSION:; Fecal stasis in the large bowels.; Fluid-filled bowels. Ileus versus developing enteritis.; Mildly thickened bladder.; Thank you for your kind referral of this patient.; ; Outcome: 03:08 Discharge ordered by Provider. cs11 03:19 Discharge Assessment: Patient awake, alert and oriented x 3. No cognitive and/or tm5 functional deficits noted. Patient verbalized understanding of disposition instructions. patient administered narcotics - no. The following High Risk Discharge criteria are identified: None. Discharged to home ambulatory. Condition: good Condition: stable Condition: improved. Discharge instructions given to patient, Instructed on discharge instructions, follow up and referral plans. medication usage, Demonstrated understanding of instructions, Pt was receptive of discharge instructions/ teaching. CT Study completed. Property :Personal belongings accompany Pt. 03:22 Patient left the ED. tm5 Signatures: Dispatcher [employer] Emely Carpenter, Reg Reg gb Kraig Lyon, DO DO cs11 Russ Flood,RN RN jmb Brenda Shrestha, Reg Reg hs2 Jenny Rubalcava,RN RN tm5 Federico Richard, Reg Reg pm4 Chart Complete MTDD
== END 2016-06-26 03:22 | disposition home or self-care (01) ==
LOC: M ED 00:29
DX: K56.41 Fecal impaction (principal); F41.9 Anxiety disorder, unspecified; G43.909 Migraine, unspecified, not intractable, without status migrainosus; Z79.899 Other long term (current) drug therapy; Z91.030 Bee allergy status
CPT/HCPCS: 36415; 74177; 80048; 80076; 81001; 82150; 83690; 84703; 85025; 87086; 96360; 99284; Q9967

== ENCOUNTER 2016-08-06 10:25 | Emergency (ER) | payer OTHER ==
[~2016-08-06] VITALS: Ht 160 cm; Wt 72.6 kg
[2016-08-06 10:26] VITALS: BP 106/64
[2016-08-06] MEDS ORDERED: IBUP-1114 PO (10:35)
[2016-08-06] MEDS ORDERED: NORCO, ANEXSIA 5/325MG TABLET (HYDROcodone/ACETAMINOPHEN) PO ONE (11:00)
[2016-08-06] MEDS ORDERED: HYDR-3713 PO (11:26)
--- NOTE | 2016-08-06 11:45 | REP ---
RIGHT KNEE, FIVE VIEWS: HISTORY: Pain. There is no acute fracture or dislocation. The joint spaces are normal in appearance. IMPRESSION: There is no acute fracture or dislocation. Signed by Lee Rodriguez MD 08/06/2016 11:47 A
== END 2016-08-06 11:57 | disposition home or self-care (01) ==
LOC: M ED 11:15
DX: S83.91XA Sprain of unspecified site of right knee, initial encounter (principal); X58.XXXA Exposure to other specified factors, initial encounter; Y92.099 Unspecified place in other non-institutional residence as the place of occurrence of the external cause; Y93.01 Activity, walking, marching and hiking; Y99.9 Unspecified external cause status

== ENCOUNTER → 2017-02-25 | Outpatient (REF) | payer OTHER ==
[~2017-02-25] MED LIST: HYDR-3713 PO; IBUP-1114 PO
[2017-02-25 13:19] LABS: CALCIUM LEVEL 8.8 MG/DL (8.5-10.1)
== END ==
LOC: M LABDRAW1 11:35
PROVIDERS: ATTEND Nurse Practitioner Family
DX: E55.9 Vitamin D deficiency, unspecified (principal)

== ENCOUNTER → 2017-10-01 | Outpatient (REF) | payer OTHER ==
[2017-10-01 13:39] LABS: BASO # 0.1 10^3/uL (0.0-0.2); BASO % 1.5 % (0.0-1.0); EOS # 0.1 10^3/uL (0.0-0.50); EOS % 2.4 % (0.0-3.0); HEMATOCRIT 37.8 % (36.0-47.0); IMMATURE GRANULOCYTE % 0.2 % (0-3.0); LYMPH % 37.5 % (24.0-44.0); MEAN CORPUSCULAR HEMOGLOBIN 27.9 pg (27.0-33.0); MEAN CORPUSCULAR HGB CONC 31.7 g/dl (32.0-36.5); MEAN CORPUSCULAR VOLUME 87.9 fl (80.0-96.0); MONO # 0.4 10^3/uL (0.0-0.8); MONO % 6.6 % (0.0-5.0); NEUTROPHILS # 2.8 10^3/uL (1.8-7.7); NEUTROPHILS % 51.8 % (36.0-66.0); PLATELET COUNT, AUTOMATED 333 10^3/uL (150-450); RED CELL DISTRIBUTION WIDTH 13.8 % (11.5-14.5); WHITE BLOOD COUNT 5.3 10^3/uL (4.0-10.0)
[2017-10-01 13:51] LABS: ALT/SGPT 23 U/L (12-78); AST/SGOT 12 U/L (7-37); C REACTIVE PROTEIN QUANTITATIV < 0.30 MG/DL (0.00-0.30); CPK CREATINE PHOSPHOKINASE 150 U/L (26-192); CREATININE FOR GFR 0.96 MG/DL (0.55-1.30); GLOMERULAR FILTRATION RATE > 60.0 (>60); RHEUMATOID FACTOR QUANT < 10.0 IU/ML (<15.0)
[2017-10-01 14:16] LABS: ERYTHROCYTE SEDIMENTATION RATE 23 mm/hr (0-20)
[2017-10-03 00:08] LABS: ANTINUCLEAR ANTIBODIES DIRECT Negative (Negative)
[2017-10-03 00:08] LABS: CYCLIC CITRULLINATED PEPTIDE 7 units (0-19)
== END ==
LOC: M LABDRAW1 10:02
DX: M25.50 Pain in unspecified joint (principal); M54.2 Cervicalgia; M54.5 Low back pain